=== PATIENT | male | born 1975 | race Native Hawaiian/Other Pacific Islander ===

== ENCOUNTER 2019-03-09 22:58 | Observation (INO) | payer BC ==
--- NOTE | 2019-03-09 23:08 | C.PDOC ---
History Of Present Illness Patient is brought to the ED by EMS accompanied by for evaluation of witnessed seizure. As per patient came out of the shower was in the kitchen when he started c/o being dizzy and then started shaking. Episode lasted couple of seconds. EMS was called, patient did not receive any anticonvulsants en route. Patient denies fever, chills, visual changes, neck pain, CP, SOB, bowel incontinence. Time Seen by Provider: 03/09/19 23:07 History Per: Patient, EMS, Family History/Exam Limitations: no limitations Onset/Duration Of Symptoms: Hrs Current Symptoms Are (Timing): Still Present (slighly post ictal) Reports Recently: Seen In ED, Treated By A Physician Recent travel outside of the [place]: No Additional History Per: Patient, EMS, Family Past Medical History Reviewed: Historical Data, Nursing Documentation, Vital Signs - Medical History PMH: No Chronic Diseases Surgical History: No Surg Hx Family History: States: Unknown Family Hx - Social History Hx Tobacco Use: No Hx Alcohol Use: No Hx Substance Use: No Review Of Systems Constitutional: Negative for: Fever, Chills Eyes: Negative for: Vision Change ENT: Negative for: Throat Pain Cardiovascular: Negative for: Chest Pain Respiratory: Negative for: Shortness of Breath Gastrointestinal: Negative for: Nausea, Vomiting Genitourinary: Negative for: Incontinence Skin: Negative for: Rash Neurological: Positive for: Dizziness. Negative for: Weakness, Numbness, Headache Psych: Negative for: Anxiety Physical Exam - Physical Exam Appears: Non-toxic, Other (lethargic but responsive) Skin: Warm, Dry Head: Normacephalic Eye(s): bilateral: Normal Inspection, PERRL, EOMI Oral Mucosa: Moist Neck: No Midline Cervical Tenderness, Supple Chest: Symmetrical Cardiovascular: Rhythm Regular Respiratory: No Rales, No Rhonchi, No Wheezing Gastrointestinal/Abdominal: Soft, No Tenderness, No Distention Back: No Vertebral Tenderness Extremity: Normal ROM Extremity: Bilateral: Atraumatic, Normal Color And Temperature, Normal ROM Pulses: Left Dorsalis Pedis: Normal, Right Dorsalis Pedis: Normal Neurological/Psych: Oriented x3, Slow To Respond With Command, Other (lethargic but responsive) Gait: Unable To Assess ED Course And Treatment - Laboratory Results Result Diagrams: 03/09/19 23:52 03/09/19 23:52 O2 Sat by Pulse Oximetry: 100 (RA) Pulse Ox Interpretation: Normal - CT Scan/US CT head Other Rad Studies (CT/US): Read By Radiologist, Radiology Report Reviewed CT/US Interpretation: CT SCAN OF THE BRAIN WITHOUT IV CONTRAST. CLINICAL INDICATION: Seizure. TECHNIQUE: Axial and reformatted sagittal and coronal images of the brain obtained without IV contrast administration. Normal size of the ventricles and extra-axial spaces for the patient's age. Normal white matter tracts of the supratentorial brain. Normal basal ganglia and thalami. Normal brainstem. Normal cerebellum. There is no demonstrated extra-axial, intraparenchymal, or intraventricular hemorrhage. There are no findings of an acute ischemic infarction. Normal calvarium. There is no demonstrated fracture. Normal soft tissue structures. 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 Normal visualized paranasal sinuses. IMPRESSION: Normal unenhanced CT scan of the brain. . Electronically signed on March 10, 2019 2:20:02 AM EDT by: Adrian Overton M.D., Certified by ABR, MSK, Neuroradiology. Progress Note: Plan: - CT head. - Labs. - IV fluids. - UA Disposition Discussed With Dr.: Mine Giles Comment: acceptd the pt on his service and took ove rthe care at 2:35 AM Doctor Will See Patient In The: Hospital Counseled Patient/Family Regarding: Studies Performed, Diagnosis - Disposition Disposition: HOSPITALIZED Disposition Time: 23:08 Condition: FAIR - Clinical Impression Clinical Impression: New onset seizure - Scribe Statement The provider has reviewed the documentation as recorded by the Scribe Mak Almazan All medical record entries made by the Sofiibhaseeb were at my direction and personally dictated by me. I have reviewed the chart and agree that the record accurately reflects my personal performance of the history, physical exam, medical decision making, and the department course for this patient. I have also personally directed, reviewed, and agree with the discharge instructions and d isposition. Decision To Admit - Pt Status Changed To: Hospital Disposition Of: Observation - . Bed Request Type: Telemetry Admitting Physician: Mine Giles Patient Diagnosis: New onset seizure
[2019-03-09] MEDS ORDERED: Sodium Chloride 0.9% 1,000 ML IV ONE (23:22)
[2019-03-09] MEDS ORDERED: Sodium Chloride 0.9% 1,000 ML ONE (23:37)
[2019-03-09 23:55] LABS: BASO # 0.1 K/uL (0.0-0.2); BASO % 0.5 % (0.0-2.0); EOS # 0.1 K/uL (0.0-0.7); EOS % 0.5 % (0.0-4.0); HEMOGLOBIN 14.4 g/dL (12.0-18.0); LYMPH % 8.7 % (20.0-40.0); MEAN CELL VOLUME 89.6 fL (80.0-94.0); MEAN CORPUSCULAR HEMOGLOBIN 30.3 pg (27.0-31.0); MEAN CORPUSCULAR HGB CONC 33.9 g/dL (33.0-37.0); MEAN PLATELET VOLUME 8.6 fL (7.2-11.7); MONO # 0.9 K/uL (0.0-0.8); MONO % 7.8 % (0.0-10.0); NEUT # 9.4 K/uL (1.8-7.0); NEUT % 82.5 % (50.0-75.0); PLATELET COUNT 230 K/uL (130-400); RBC 4.76 Mil/uL (4.40-5.90); RED CELL DISTRIBUTION WIDTH 13.3 % (11.5-14.5); WHITE BLOOD COUNT 11.3 K/uL (4.8-10.8)
[2019-03-10 00:14] LABS: ALB/GLOB RATIO 1.3 (1.0-2.1); ALBUMIN 4.6 g/dL (3.5-5.0); BLOOD UREA NITROGEN 15 mg/dL (9-20); GFR NON-AFRICAN AMERICAN > 60
[2019-03-10 00:29] LABS: ALT/SGPT 60 U/L (21-72); AST/SGOT 64 U/L (17-59)
[2019-03-10 00:53] LABS: BANDS 5 % (0-2); LYMPHOCYTE 7 % (20-40); MONOCYTE 8 % (0-10); NEUTROPHIL 77 % (50-75); PLATELET ESTIMATE NORMAL (NORMAL); REACTIVE LYMPHOCYTES 3 % (0-0); TOTAL CELLS COUNTED 100
[2019-03-10 01:13] LABS: GRANULAR CAST 3 /lpf (0-1); SQUAMOUS EPITHIAL < 1 /hpf (0-5); URINE BILIRUBIN NEGATIVE (NEGATIVE); URINE BLOOD NEGATIVE (NEGATIVE); URINE CLARITY Hazy (Clear); URINE COLOR Yellow (YELLOW); URINE GLUCOSE (UA) NORMAL (Normal); URINE LEUKOCYTE ESTERASE NEG Leu/uL (Negative); URINE PROTEIN 2+ mg/dL (NEGATIVE); URINE UROBILINOGEN NORMAL mg/dL (0.2-1.0)
[2019-03-10 01:35] LABS: BARBITURATES, UR NEGATIVE (NEGATIVE); BENZODIAZEPINES, UR NEGATIVE (NEGATIVE); OPIATES, UR NEGATIVE (NEGATIVE); PHENCYCLIDINE, UR NEGATIVE (NEGATIVE)
[2019-03-10] MEDS ORDERED: Sodium Chloride 0.9% 1,000 ML IV ONE (02:36)
--- NOTE | 2019-03-10 08:38 | CT ---
Date of service: 03/10/2019 PROCEDURE: CT HEAD WITHOUT CONTRAST. HISTORY: seizure COMPARISON: Not available TECHNIQUE: Axial computed tomography images were obtained through the head/brain without intravenous contrast. Radiation dose: Total exam DLP = 1116.15 mGy-cm. This CT exam was performed using one or more of the following dose reduction techniques: Automated exposure control, adjustment of the mA and/or kV according to patient size, and/or use of iterative reconstruction technique. FINDINGS: HEMORRHAGE: No intracranial hemorrhage. BRAIN: No mass effect or edema. No atrophy or chronic microvascular ischemic changes. VENTRICLES: Unremarkable. No hydrocephalus. CALVARIUM: Unremarkable. PARANASAL SINUSES: Unremarkable as visualized. No significant inflammatory changes. MASTOID AIR CELLS: Unremarkable as visualized. No inflammatory changes. OTHER FINDINGS: None. IMPRESSION: Normal CT of the Head. No intracranial mass, hemorrhage or evidence of acute infarct. The preliminary findings for this examination were reported by [facility] Radiology at 2:20 a.m. on 03/10/2019. There is concurrence of this report with the preliminary findings.
[2019-03-10] MEDS: Pantoprazole 40 mg EC Tab PO SCH (10:34)
[2019-03-10] MEDS: Enoxaparin 40 mg Syringe SC SCH (10:35)
[2019-03-10 15:37] VITALS: RESP 20
[2019-03-10] MEDS ORDERED: Gadodiamide 287 MG/ML VIAL (15ML) IV ONE (15:48)
--- NOTE | 2019-03-10 17:32 | CON ---
DATE: 03/10/2019 NEUROLOGY CONSULTATION REASON FOR CONSULTATION: Seizure. HISTORY OF PRESENT ILLNESS: The patient is a 44-year-old male who has been asked for evaluation of seizure. As per the patient's , the patient got out of the shower, and after that, he was in the kitchen and started being dizzy, and after that, he started shaking and he passed out. He did not have any tongue biting or urinary incontinence. The patient never had generalized seizure before. The patient has history of being confused in the past. All his electroencephalograms were negative. He has never had generalize seizure. Denies taking any new medication or [id number] medication. Denies any other complaints. REVIEW OF SYSTEMS: Denies any headache, dizziness, chest pain, shortness of breath, abdominal pain, constipation, diarrhea, dysuria, cough, sputum production, focal weakness in the arms or legs. PAST MEDICAL HISTORY: Includes gout. MEDICATIONS: Included colchicine. ALLERGIES: NO KNOWN DRUG ALLERGIES. SOCIAL HISTORY: Denies smoking, use of alcohol, or illicit drugs. FAMILY HISTORY: Reviewed and noncontributory. PHYSICAL EXAMINATION: GENERAL: The patient is a middle-aged pleasant male, lying on the bed, in no acute distress. VITAL SIGNS: His blood pressure is 115/76, heart rate is 60 per minute, breathing at the rate of 16 per minute, temperature is 98.2 degrees Fahrenheit. HEENT: Head is normocephalic, atraumatic. NECK: Supple. There are no carotid bruits. LUNGS: Clear. CVS: S1 and S2 audible. No murmurs. ABDOMEN: Soft, nontender. Bowel sounds are present. NEUROLOGIC EXAMINATION: Mental status: Patient is awake and alert; oriented to time, place, and person. Speech is fluent. Naming and repetition are normal. Memory and cognition are intact. Cranial nerve examination: Pupils are 3 mm bilaterally, reactive to light. Visual chapa are full. Extraocular movements are intact. There is no facial asymmetry. Palate is upgoing bilaterally and tongue is midline. Motor examination: Tone is normal. Power is 5/5 bilaterally in all extremities. Reflexes are 2+ and symmetrical. Plantars are downgoing bilaterally. Cerebellar examination: [id number] shows no dysmetria. Gait is deferred at the moment. LABORATORY DATA: Labs are reviewed. WBC 11.3, hemoglobin 14.4, hematocrit 42.7, and platelets of 230. Sodium is 138, potassium 3.9, chloride 104, carbon dioxide 22, BUN of 15, creatinine 1, and glucose of 131. His urine toxicology screen is negative. The patient had a CT scan of the head done, which was negative. IMPRESSION: New-onset seizure. RECOMMENDATIONS: 1. The patient to have MRI of the brain without contrast. 2. The patient to be started on Keppra 500 mg twice a day. This is because the patient had episodes of confusion in the past and most likely those are altered seizures. 3. The patient to maintain seizure precautions. 4. If the patient remains stable, then he may be discharged later today if MRI of the brain was negative with outpatient followup. Thank you for the opportunity to participate in the care of this patient. Donte Casanova MD
--- NOTE | 2019-03-10 21:32 | CP.PCM.HP ---
History of Present Illness - History of Present Illness History of Present Illness: 44 years old [place] male was witnessed to have a generalized seizure after getting out of the bathroom at home yesterday. This is the first time he has a witnessed seizure, He has had episodes of dizziness and suspected syncopy in the past. He was seen by his Neurologist, Dr Donte Casanova, who diagnosed him to have seizures disorders and started him on Keppra 250 mg PO BID, but he took the medications. He is also known to have gout and hypertension, on Allopurinol and Losartan. The also is noted to be very fortgetful recently. Present on Admission - Present on Admission Any Indicators Present on Admission: No Review of Systems - Musculoskeletal Additional comments: Pain and swelling of the right knee. - Neurological Neurological: Convulsions - Psychiatric Psychiatric: Memory Loss Past Patient History - Infectious Disease Hx of Infectious Diseases: None - Tetanus Immunizations Tetanus Immunization: Unknown - Past Medical History & Family History Past Medical History?: Yes - Past Social History Smoking Status: Never Smoked Alcohol: None Drugs: Denies Home Situation {Lives}: With Family Domestic Violence: Negative - CARDIAC Hx Hypertension: Yes - NEUROLOGICAL Hx Neurological Disorder: Yes Hx Seizures: Yes Hx Transient Ischemic Attacks (TIA): Yes - MUSCULOSKELETAL/RHEUMATOLOGICAL Hx Musculoskeletal Disorders: Yes Hx Gout: Yes - PSYCHIATRIC Hx Substance Use: No - SURGICAL HISTORY Hx Surgeries: No - ANESTHESIA Hx Anesthesia: No Meds Allergies/Adverse Reactions: Allergies Allergy/AdvReac Type Severity Reaction Status Date / Time No Known Allergies Allergy Verified 03/09/19 23:15 Physical Exam - Constitutional Appears: Well, No Acute Distress - Head Exam Head Exam: NORMAL INSPECTION - Eye Exam Eye Exam: Normal appearance Pupil Exam: NORMAL ACCOMODATION - ENT Exam ENT Exam: Normal Exam - Neck Exam Neck exam: Positive for: Normal Inspection - Respiratory Exam Respiratory Exam: Clear to Auscultation Bilateral, NORMAL BREATHING PATTERN - Cardiovascular Exam Cardiovascular Exam: REGULAR RHYTHM - GI/Abdominal Exam GI & Abdominal Exam: Normal Bowel Sounds, Soft - Rectal Exam Rectal Exam: Deferred - Exam Exam: NORMAL INSPECTION - Extremities Exam Extremities exam: Positive for: normal inspection Additional comments: Tender and swollen right knee. - Back Exam Back exam: NORMAL INSPECTION - Neurological Exam Neurological exam: Alert, Normal Gait, Oriented x3 - Psychiatric Exam Psychiatric exam: Anxious - Skin Skin Exam: Dry, Intact, Normal Color, Warm Results - Vital Signs Recent Vital Signs: Last Vital Signs Temp 98.9 F 03/10/19 16:16 Pulse 71 03/10/19 16:38 Resp 20 03/10/19 16:16 BP 139/90 03/10/19 16:16 Pulse Ox 97 03/10/19 16:38 - Labs Result Diagrams: 03/09/19 23:52 03/09/19 23:52 Labs: Laboratory Results - last 24 hr 03/09/19 03/09/19 03/09/19 23:07 23:52 23:52 WBC 11.3 H RBC 4.76 Hgb 14.4 Hct 42.7 MCV 89.6 MCH 30.3 MCHC 33.9 RDW 13.3 Plt Count 230 MPV 8.6 Neut % (Auto) 82.5 H Lymph % (Auto) 8.7 L Morris % (Auto) 7.8 Eos % (Auto) 0.5 Baso % (Auto) 0.5 Neut # (Auto) 9.4 H Lymph # (Auto) 1.0 Morris # (Auto) 0.9 H Eos # (Auto) 0.1 Baso # (Auto) 0.1 Neutrophils % (Manual) 77 H Band Neutrophils % 5 H Lymphocytes % (Manual) 7 L Reactive Lymphs % 3 H Monocytes % (Manual) 8 Platelet Estimate Normal Sodium 138 Potassium 3.9 Chloride 104 Carbon Dioxide 22 Anion Gap 15 BUN 15 Creatinine 1.0 Est GFR ( Amer) > 60 Est GFR (Non-Af Amer) > 60 POC Glucose (mg/dL) 155 H Random Glucose 131 H Calcium 9.0 Total Bilirubin 1.0 AST 64 H ALT 60 Alkaline Phosphatase 66 Total Protein 8.1 Albumin 4.6 Globulin 3.5 Albumin/Globulin Ratio 1.3 Urine Color Urine Clarity Urine pH Ur Specific [place] Urine Protein Urine Glucose (UA) Urine Ketones Urine Blood Urine Nitrate Urine Bilirubin Urine Urobilinogen Ur Leukocyte Esterase Urine WBC (Auto) Urine RBC (Auto) Ur Squamous Epith Cells Hyaline Casts Granular Casts (Auto) Urine Opiates Screen Urine Methadone Screen Ur Barbiturates Screen Ur Phencyclidine Scrn Ur Amphetamines Screen U Benzodiazepines Scrn U Oth Cocaine Metabols U Cannabinoids Screen Alcohol, Quantitative < 10 03/10/19 03/10/19 01:06 01:06 WBC RBC Hgb Hct MCV MCH MCHC RDW Plt Count MPV Neut % (Auto) Lymph % (Auto) Morris % (Auto) Eos % (Auto) Baso % (Auto) Neut # (Auto) Lymph # (Auto) Morris # (Auto) Eos # (Auto) Baso # (Auto) Neutrophils % (Manual) Band Neutrophils % Lymphocytes % (Manual) Reactive Lymphs % Monocytes % (Manual) Platelet Estimate Sodium Potassium Chloride Carbon Dioxide Anion Gap BUN Creatinine Est GFR ( Amer) Est GFR (Non-Af Amer) POC Glucose (mg/dL) Random Glucose Calcium Total Bilirubin AST ALT Alkaline Phosphatase Total Protein Albumin Globulin Albumin/Globulin Ratio Urine Color Yellow Urine Clarity Hazy Urine pH 5.0 Ur Specific [place] 1.023 Urine Protein 2+ H Urine Glucose (UA) Normal Urine Ketones Trace Urine Blood Negative Urine Nitrate Negative Urine Bilirubin Negative Urine Urobilinogen Normal Ur Leukocyte Esterase Neg Urine WBC (Auto) 2 Urine RBC (Auto) < 1 Ur Squamous Epith Cells < 1 Hyaline Casts 6-10 H Granular Casts (Auto) 3 Urine Opiates Screen Negative Urine Methadone Screen Negative Ur Barbiturates Screen Negative Ur Phencyclidine Scrn Negative Ur Amphetamines Screen Negative U Benzodiazepines Scrn Negative U Oth Cocaine Metabols Negative U Cannabinoids Screen Negative Alcohol, Quantitative Assessment & Plan (1) New onset seizure Status: Acute (2) Acute gout of right knee Assessment and Plan: Try NSAID Status: Acute (3) Hypertension Assessment and Plan: To continue Losartan. Status: Chronic (4) Forgetfulness Assessment and Plan: R/o Dementia. To get a psychiatric evaluation. Status: Acute - Assessment and Plan (Free Text) Assessment: Neuro evaluation. Start Keppra. Decision To Admit - Pt Status Changed To: Hospital Disposition Of: Inpatient - Admit Certification Admit to Inpatient:: After my assessment, the patient will require hospitalization for at least two midnights. This is because of the severity of symptoms shown, intensity of services needed, and/or the medical risk in this patient being treated as an outpatient. - InPatient: Physician Admission Certification:: After my assessments, the patient requires hospitalization for at least 2 midnights. - . Bed Request Type: Regular Admitting Physician: Paul Zamora
[2019-03-11 07:57] VITALS: O2SAT 97
--- NOTE | 2019-03-11 09:58 | MRI ---
Date of service: 03/10/2019 PROCEDURE: MRI BRAIN WITH AND WITHOUT CONTRAST HISTORY: seizure COMPARISON: Unenhanced head CT 03/10/2019. TECHNIQUE: Multiplanar, multisequence MR images of the brain were obtained with and without intravenous contrast enhancement (Omniscan 13 cc). FINDINGS: HEMORRHAGE: None DWI: No evidence of an acute or early subacute infarction. BRAIN PARENCHYMA: There is a small area of cystic encephalomalacia at the medial inferior right frontal lobe which may be posttraumatic in origin though this is nonspecific and other etiologies are possible. The remaining brain is normal in signal intensity with good corticomedullary differentiation and no mass effect. There is no suspicious extra-axial collection identified. Midline brain anatomy is unremarkable throughout. Medial temporal lobes appear unremarkable and are symmetric. No overt pattern to suggest mesial temporal sclerosis. ENHANCEMENT: No abnormal intracranial enhancement. VENTRICLES: Unremarkable. No hydrocephalus. CRANIUM: Unremarkable. ORBITS: Grossly unremarkable. PARANASAL SINUSES/MASTOIDS: Clear VASCULAR SYSTEM: Skull base flow voids intact. OTHER FINDINGS: None . 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 No definite acute findings. Remaining brain parenchyma is unremarkable. No abnormal intracranial enhancement. Discordant preliminary report from [facility] 03/10/2019, 5:42 p.m.. Limited right frontal cystic encephalomalacia is not mentioned in preliminary report.
[2019-03-11] MEDS: Enoxaparin 40 mg Syringe SC SCH (11:23)
[2019-03-11] MEDS: Pantoprazole 40 mg EC Tab PO SCH (11:23)
--- NOTE | 2019-03-11 12:04 | CARD ---
APPROVED REPORT Date of service: 03/10/2019 EKG Measurement Heart [id number] <Conclusion> Sinus bradycardia with sinus arrhythmia Otherwise normal ECG
[2019-03-11 15:35] VITALS: BP 149/95; PULSE 62; TEMP 97.6
--- NOTE | 2019-03-11 16:31 | PN ---
DATE: 03/11/2019 NEUROLOGY PROGRESS NOTE SUBJECTIVE: The patient is lying on the bed in no acute distress. Denies having any headache or dizziness. Complaining of some right knee pain, which is secondary from his gout. PHYSICAL EXAMINATION: VITAL SIGNS: His blood pressure is 132/79, heart rate is 63 per minute, breathing at the rate of 16 per minute, and temperature is 97.4 degrees Fahrenheit. HEENT: Head is normocephalic and atraumatic. NECK: Supple. There are no carotid bruits. LUNGS: Clear. CARDIOVASCULAR SYSTEM: S1 and S2 audible. No murmurs. ABDOMEN: Soft and nontender. Bowel sounds are present. NEUROLOGIC: Mental Status: He is awake, alert, oriented to time, place, and person. Speech is fluent. Naming and repetition normal. Memory and cognition are intact. Cranial nerve examination: Pupils 4-mm bilaterally, reactive to light. Visual chapa are full. Extraocular movements are intact. There is no facial asymmetry. Power is 5/5 bilaterally in all extremities. Plantars are downgoing bilaterally. [id number] shows no dysmetria. LABORATORY DATA: Reviewed. MRI of the brain shows limited cystic encephalomalacia medial inferior right temporal lobe potentially post-traumatic. No definite acute findings. Remaining brain parenchyma is unremarkable. No abnormal intracranial enhancement. IMPRESSION: New onset of seizure. RECOMMENDATIONS: 1. The patient to be continued on Keppra 500 mg twice a day. 2. The patient is tolerating it fine. 3. The patient had no further seizures. 4. The patient remains stable from a neurologic standpoint. He can be discharged with outpatient followup. Thank you for the opportunity to participate in the care of this patient. Donte Casanova MD
--- NOTE | 2019-03-11 23:56 | CP.PCM.PN ---
Subjective - Date & Time of Evaluation Date of Evaluation: 03/11/19 Time of Evaluation: 19:30 - Subjective Subjective: Patient has no complaint. MRI of the head noted. Patient states that he had a head concussion at work in 2011, when some heavy object felt in his head. Patient being evaluated by Dr Chelsea Casanova ( Neurology ) and Dr Pride ( Psychiatry ) who suggest the patient to apply for disability because his increased forgetfullness. The was started on Prodigy. Will discharge patient home today. Advise patient to have a F/U with Dr Chelsea Casanova and Dr Pride as soon as possible. Objective - Vital Signs/Intake and Output Vital Signs (last 24 hours): Temp Pulse Resp BP Pulse Ox 97.6 F 62 20 149/95 H 97 03/11/19 15:00 03/11/19 15:00 03/11/19 15:00 03/11/19 15:00 03/11/19 15:00 - Labs Labs: 03/09/19 23:52 03/09/19 23:52 - Constitutional Appears: Well, No Acute Distress - Head Exam Head Exam: NORMAL INSPECTION - Eye Exam Eye Exam: Normal appearance Pupil Exam: NORMAL ACCOMODATION - ENT Exam ENT Exam: Normal Exam - Neck Exam Neck Exam: Normal Inspection - Respiratory Exam Respiratory Exam: Clear to Ausculation Bilateral, NORMAL BREATHING PATTERN - Cardiovascular Exam Cardiovascular Exam: REGULAR RHYTHM - GI/Abdominal Exam GI & Abdominal Exam: Soft, Normal Bowel Sounds - Rectal Exam Rectal Exam: Deferred - Extremities Exam Extremities Exam: Normal Inspection - Back Exam Back Exam: NORMAL INSPECTION - Neurological Exam Neurological Exam: Alert, Awake, Normal Gait, Oriented x3 - Psychiatric Exam Psychiatric exam: Anxious - Skin Skin Exam: Dry, Intact, Normal Color, Warm Assessment and Plan (1) New onset seizure Assessment & Plan: To continue Keppra 500 mg PO BID. Status: Acute (2) Acute gout of right knee Assessment & Plan: On Indocin 25 mg PO TID. Status: Acute (3) Hypertension Assessment & Plan: To continue Losartan 25 mg PO qd. Status: Chronic (4) Forgetfulness Assessment & Plan: On Prodigy 100 mg PO qd. Status: Acute
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
== END 2019-03-11 20:40 | disposition home or self-care (01) ==
LOC: C.ER 22:58 → C.9E 03-10 02:33 → C.5S 03-10 04:31
PROVIDERS: ADMIT Internal Medicine Cardiovascular Disease; ATTEND Internal Medicine Cardiovascular Disease
DX: F03.90 Unspecified dementia, unspecified severity, without behavioral disturbance, psychotic disturbance, mood disturbance, and anxiety (principal); G47.30 Sleep apnea, unspecified; I10 Essential (primary) hypertension; M10.9 Gout, unspecified; R56.9 Unspecified convulsions; Z56.0 Unemployment, unspecified; Z79.899 Other long term (current) drug therapy; Z87.820 Personal history of traumatic brain injury
CPT/HCPCS: 36415; 70450; 70553; 80053; 81001; 82607; 82746; 82948; 83735; 84425; 84443; 85025; 93005; 95812; 99285; G0378; G0480; J1650; J7030